=== PATIENT | male | born 1990 | race African-American/Black ===

== ENCOUNTER 2021-10-02 16:00 | Emergency (ER) | payer OTHER ==
[2021-10-02 16:13] VITALS: BP 128/77; PULSE 89; TEMP 97.8; BMI 26.6
[2021-10-02] MEDS ORDERED: ACETAMINOPHEN 325 MG TABLET (FP) PO ONE (17:04)
[2021-10-02] MEDS ORDERED: DIPHTH,PERTUSS(ACELL),TET 0.5 ML DISP.SYRIN IM ONE ×2 (17:04→17:34)
[2021-10-02] MEDS ORDERED: ACETAMINOPHEN 325 MG TABLET (FP) ONE (17:34)
== END 2021-10-02 17:59 | disposition home or self-care (01) ==
LOC: FER 16:00
PROC: 0HQGXZZ Repair Left Hand Skin, External Approach (ICD-10-PCS; principal; 2021-10-02)
PROC: 3E0234Z Introduction of Serum, Toxoid and Vaccine into Muscle, Percutaneous Approach (ICD-10-PCS; 2021-10-02)
DX: S61.012A Laceration without foreign body of left thumb without damage to nail, initial encounter (principal); W26.8XXA Contact with other sharp object(s), not elsewhere classified, initial encounter
CPT/HCPCS: 12001-25; 90471; 90715; 99283-25

== ENCOUNTER 2022-07-01 13:05 | Emergency (ER) | payer OTHER ==
[2022-07-01 13:36] VITALS: RESP 16; BMI 25.8
[2022-07-01] MEDS ORDERED: SODIUM CHLORIDE 0.9% 500 ML INFUS.BAG IV ONE ×2 (14:20→18:54)
[2022-07-01] MEDS ORDERED: ONDANSETRON 4 MG/2 ML VIAL IVPB ONE (14:20)
[2022-07-01] MEDS ORDERED: FAMOTIDINE 20 MG/50 ML IVPB 20 MG in PREMIX 50 IVPB ONE (14:20)
[2022-07-01] MEDS ORDERED: ONDANSETRON 4 MG/2 ML VIAL ONE ×2 (14:40→19:03)
[2022-07-01] MEDS ORDERED: FAMOTIDINE 20 MG/50 ML IVPB 20 MG/50 ML MG IVPB ONE (14:40)
[2022-07-01 15:26] LABS: EPITHELIAL CELLS RARE /hpf
[2022-07-01 16:10] LABS: HEMATOCRIT 49.6 % (35.4-49); MCH 32.7 pg (25.7-33.7); MCHC 34.2 g/dl (32.0-35.9); MEAN CELL VOLUME 95.5 fl (80-96); MEAN PLT VOLUME 7.8 fl (7.5-11.1); PLATELET COUNT 245.5 10^3/uL (134-434); RBC 5.19 10^6/uL (4.00-5.60); WHITE BLOOD COUNT 10.3 10^3/uL (4.0-10.8)
[2022-07-01 16:14] LABS: PLATELET ESTIMATE ADEQUATE
[2022-07-01 16:26] LABS: ALBUMIN 4.6 g/dl (3.4-5.0); BILIRUBIN,TOTAL 1.5 mg/dl (0.2-1); CALCIUM 9.1 mg/dl (8.5-10); CREATININE 1.2 mg/dl (0.55-1.3); TOT PROT 9.5 g/dl (6.4-8.2)
[2022-07-01] MEDS ORDERED: ONDANSETRON 4 MG/2 ML VIAL IVPUSH ONE (18:54)
[2022-07-01 19:15] VITALS: BP 106/66; PULSE 50; TEMP 98.7
[2022-07-01] MEDS ORDERED: HALOPERIDOL LACTATE 5 MG/ML IM ONE ×2 (20:07→20:51)
== END 2022-07-01 23:15 | disposition home or self-care (01) ==
LOC: FER 13:05
PROC: 3E033GC Introduction of Other Therapeutic Substance into Peripheral Vein, Percutaneous Approach (ICD-10-PCS; principal; 2022-07-01)
PROC: 3E033GC Introduction of Other Therapeutic Substance into Peripheral Vein, Percutaneous Approach (ICD-10-PCS; 2022-07-01)
PROC: 3E033GC Introduction of Other Therapeutic Substance into Peripheral Vein, Percutaneous Approach (ICD-10-PCS; 2022-07-01)
PROC: 3E023GC Introduction of Other Therapeutic Substance into Muscle, Percutaneous Approach (ICD-10-PCS; 2022-07-01)
DX: R11.2 Nausea with vomiting, unspecified (principal)
CPT/HCPCS: 0241U-QW; 36415; 74177-TC; 80053; 81003; 81015; 83690; 85027; 99285-25; Q9967

== ENCOUNTER 2023-09-10 21:23 | Emergency (ER) | payer OTHER ==
[2023-09-10 21:31] VITALS: BP 106/58; PULSE 54; RESP 16; TEMP 99.4; BMI 27.3
[2023-09-10] MEDS ORDERED: ONDANSETRON 4 MG/2 ML VIAL IVPUSH ONE (21:48)
[2023-09-10] MEDS ORDERED: SODIUM CHLORIDE 1,000 ML IV STA (21:48)
[2023-09-10] MEDS ORDERED: ONDANSETRON 4 MG/2 ML VIAL ONE (21:54)
[2023-09-10] MEDS ORDERED: HALOPERIDOL LACTATE 5 MG/ML IVPUSH ONE ×2 (22:40→23:58)
[2023-09-10] MEDS ORDERED: HALOPERIDOL LACTATE 5 MG/ML ONE (22:43)
[2023-09-10] MEDS ORDERED: ACETAMINOPHEN 1000 MG/100 ML BAG IVPB ONE (22:52)
[2023-09-10] MEDS ORDERED: ACETAMINOPHEN INJECTION 100 ML IVPB ONE (22:56)
[2023-09-11] MEDS ORDERED: HALOPERIDOL LACTATE 5 MG/ML IVPUSH ONE (00:01)
[2023-09-11] MEDS ORDERED: SODIUM CHLORIDE 1,000 ML IV STA ×2 (00:11→02:28)
[2023-09-11 01:46] LABS: BASO % 0.3 % (0-2.0); HEMATOCRIT 43.5 % (35.4-49); HEMOGLOBIN 14.6 GM/dL (11.7-16.9); LYMPH % 20.5 % (8-40); MCH 31.2 pg (25.7-33.7); MCHC 33.6 g/dl (32.0-35.9); MEAN CELL VOLUME 92.9 fl (80-96); MEAN PLT VOLUME 7.8 fl (7.5-11.1); MONO % 5.6 % (3.8-10.2); NEUT % 73.6 % (42.8-82.8); PLATELET COUNT 301 10^3/uL (134-434); RBC 4.68 M/mm3 (4.00-5.60); WHITE BLOOD COUNT 5.4 K/mm3 (4.0-10.0)
[2023-09-11 02:16] LABS: POTASSIUM 3.8 mmol/L (3.5-5.1)
[2023-09-11 02:18] LABS: ALBUMIN 3.9 g/dl (3.4-5.0); BLOOD UREA NITROGEN 11.9 mg/dL (7-18); CALCIUM 9.4 mg/dL (8.5-10.1)
[2023-09-11 02:21] LABS: CREATININE 1.1 mg/dL (0.55-1.3)
[2023-09-11 02:23] LABS: BILIRUBIN,TOTAL 0.7 mg/dL (0.2-1); TOT PROT 8.6 g/dl (6.4-8.2)
[2023-09-11] MEDS ORDERED: METOCLOPRAMIDE HCL INJECTION 10 MG/2 ML VIAL IVPB ONE (03:02)
[2023-09-11] MEDS ORDERED: METOCLOPRAMIDE HCL INJECTION 10 MG/2 ML VIAL ONE (03:03)
== END 2023-09-11 03:45 | disposition home or self-care (01) ==
LOC: FER 21:23
PROC: 3E033NZ Introduction of Analgesics, Hypnotics, Sedatives into Peripheral Vein, Percutaneous Approach (ICD-10-PCS; principal; 2023-09-10)
PROC: 3E033GC Introduction of Other Therapeutic Substance into Peripheral Vein, Percutaneous Approach (ICD-10-PCS; 2023-09-10)
PROC: 3E033GC Introduction of Other Therapeutic Substance into Peripheral Vein, Percutaneous Approach (ICD-10-PCS; 2023-09-10)
PROC: 3E033GC Introduction of Other Therapeutic Substance into Peripheral Vein, Percutaneous Approach (ICD-10-PCS; 2023-09-10)
PROC: 3E0337Z Introduction of Electrolytic and Water Balance Substance into Peripheral Vein, Percutaneous Approach (ICD-10-PCS; 2023-09-10)
PROC: 3E033GC Introduction of Other Therapeutic Substance into Peripheral Vein, Percutaneous Approach (ICD-10-PCS; 2023-09-11)
PROC: 3E0337Z Introduction of Electrolytic and Water Balance Substance into Peripheral Vein, Percutaneous Approach (ICD-10-PCS; 2023-09-11)
PROC: 3E0337Z Introduction of Electrolytic and Water Balance Substance into Peripheral Vein, Percutaneous Approach (ICD-10-PCS; 2023-09-11)
DX: R11.2 Nausea with vomiting, unspecified (principal); R19.7 Diarrhea, unspecified; K52.9 Noninfective gastroenteritis and colitis, unspecified
CPT/HCPCS: 36415; 71045-TC-FY; 80053; 85025; 99284-25

== ENCOUNTER 2023-10-23 09:29 | Emergency (ER) | payer OTHER ==
[2023-10-23 09:36] VITALS: BP 128/98; PULSE 61; RESP 18; TEMP 98.7; BMI 27.4
[2023-10-23] MEDS ORDERED: ACETAMINOPHEN INJECTION 100 ML IVPB ONE (10:07)
[2023-10-23] MEDS ORDERED: ONDANSETRON 4 MG/2 ML VIAL ONE (10:07)
[2023-10-23] MEDS: LACTATED RINGERS SOLUTION 1000 ML INFUS.BAG IV ONE (10:15)
[2023-10-23] MEDS: ONDANSETRON 4 MG/2 ML VIAL IVPUSH ONE (10:15)
[2023-10-23] MEDS: ACETAMINOPHEN 1000 MG/100 ML BAG IVPB ONE (10:20)
[2023-10-23 10:25] LABS: HEMATOCRIT 45.6 % (35.4-49); HEMOGLOBIN 15.7 G/dL (11.7-16.9); MCHC 34.4 g/dl (32.0-35.9); MEAN CELL VOLUME 92.9 fl (80-96); MEAN PLT VOLUME 7.6 fl (7.5-11.1); PLATELET COUNT 316.3 10^3/uL (134-434); RBC 4.91 10^6/uL (4.00-5.60); RDW 14.8 % (11.9-15.9); WHITE BLOOD COUNT 6.2 10^3/uL (4.0-10.8)
[2023-10-23 10:28] LABS: EPITHELIAL CELLS 0-5 /hpf; URINE MUCUS MANY
[2023-10-23 10:36] LABS: ALBUMIN 4.8 g/dl (3.4-5.0); BILIRUBIN,TOTAL 0.9 mg/dl (0.2-1); CALCIUM 10.3 mg/dl (8.5-10.1); CREATININE 1.1 mg/dl (0.6-1.3); PLATELET ESTIMATE ADEQUATE; POTASSIUM 4.1 mmol/L (3.5-5.1); TOT PROT 8.9 g/dl (6.4-8.2)
[2023-10-23] MEDS ORDERED: METOCLOPRAMIDE HCL INJECTION 10 MG/2 ML VIAL ONE (12:01)
[2023-10-23] MEDS: SODIUM CHLORIDE 0.9% 1000 ML INFUS.BAG IV ONE (12:05)
[2023-10-23] MEDS: METOCLOPRAMIDE HCL INJECTION 10 MG/2 ML VIAL IVPB ONE (12:10)
== END 2023-10-23 15:05 | disposition home or self-care (01) ==
LOC: FER 09:29
PROC: 3E033NZ Introduction of Analgesics, Hypnotics, Sedatives into Peripheral Vein, Percutaneous Approach (ICD-10-PCS; principal; 2023-10-23)
PROC: 3E033GC Introduction of Other Therapeutic Substance into Peripheral Vein, Percutaneous Approach (ICD-10-PCS; 2023-10-23)
PROC: 3E033GC Introduction of Other Therapeutic Substance into Peripheral Vein, Percutaneous Approach (ICD-10-PCS; 2023-10-23)
PROC: 3E033GC Introduction of Other Therapeutic Substance into Peripheral Vein, Percutaneous Approach (ICD-10-PCS; 2023-10-23)
DX: R11.2 Nausea with vomiting, unspecified (principal); R10.32 Left lower quadrant pain; R10.12 Left upper quadrant pain; Z20.822 Contact with and (suspected) exposure to COVID-19
CPT/HCPCS: 0241U-QW; 36415; 74177-TC; 80053; 81003; 81015; 83690; 85025; 87086; 99285-25; J0131; Q9967

== ENCOUNTER 2024-03-03 15:29 | Emergency (ER) | payer OTHER ==
[2024-03-03 15:47] VITALS: BP 100/81; PULSE 99; RESP 20; TEMP 98.4; BMI 27.4
[2024-03-03] MEDS ORDERED: DEXAMETHASONE SOD PHOSPHATE 10 MG/1 ML VIAL ONE (16:04)
[2024-03-03] MEDS: DEXAMETHASONE SOD PHOSPHATE 10 MG/1 ML VIAL IVPUSH ONE (16:16)
[2024-03-03 18:03] LABS: THROAT:GRP A STREP NOT DETECTED (NOTDETECTED)
== END 2024-03-03 16:38 | disposition home or self-care (01) ==
LOC: FER 15:29
PROC: 3E033GC Introduction of Other Therapeutic Substance into Peripheral Vein, Percutaneous Approach (ICD-10-PCS; principal; 2024-03-03)
DX: R07.0 Pain in throat (principal); R05.9 Cough, unspecified; Z20.822 Contact with and (suspected) exposure to COVID-19
CPT/HCPCS: 0241U-QW; 87651; 99284-25; J1100

== ENCOUNTER 2024-07-01 11:25 | Emergency (ER) | payer OTHER ==
[2024-07-01 11:51] VITALS: PULSE 89; RESP 18; TEMP 98.4; BMI 28.0
[2024-07-01] MEDS ORDERED: FAMOTIDINE 20 MG/50 ML IVPB 20 MG/50 ML MG IVPB ONE (12:08)
[2024-07-01] MEDS ORDERED: METOCLOPRAMIDE HCL INJECTION 10 MG/2 ML VIAL ONE (12:08)
[2024-07-01] MEDS ORDERED: ACETAMINOPHEN INJECTION 100 ML ONE (12:08)
[2024-07-01] MEDS: SODIUM CHLORIDE 0.9% 500 ML INFUS.BAG IV ONE ×2 (12:15→13:42)
[2024-07-01] MEDS: ACETAMINOPHEN 1000 MG/100 ML BAG IVPB ONE (12:20)
[2024-07-01 12:21] LABS: HEMATOCRIT 47.9 % (35.4-49); HEMOGLOBIN 16.2 G/dL (11.7-16.9); MCH 31.4 pg (25.7-33.7); MCHC 33.8 g/dl (32.0-35.9); MEAN PLT VOLUME 8.7 fl (7.5-11.1); PLATELET COUNT 339.9 10^3/uL (134-434); RBC 5.15 10^6/uL (4.00-5.60); RDW 14.1 % (11.9-15.9); WHITE BLOOD COUNT 7.5 10^3/uL (4.0-10.8)
[2024-07-01] MEDS: METOCLOPRAMIDE HCL INJECTION 10 MG/2 ML VIAL IVPB ONE (12:38)
[2024-07-01 12:44] LABS: EPITHELIAL CELLS 0-5 /hpf
[2024-07-01 12:45] LABS: URINE MUCUS 2+
[2024-07-01 12:53] LABS: ALBUMIN 4.9 g/dl (3.4-5.0); BILIRUBIN,TOTAL 0.7 mg/dl (0.2-1); CALCIUM 10.7 mg/dl (8.5-10.1); CREATININE 1.5 mg/dl (0.6-1.3); POTASSIUM 4.5 mmol/L (3.5-5.1); TOT PROT 8.8 g/dl (6.4-8.2)
[2024-07-01] MEDS: FAMOTIDINE 20 MG/50 ML IVPB 20 MG/50 ML MG IVPB ONE (12:53)
[2024-07-01 12:58] LABS: PLATELET ESTIMATE ADEQUATE
[2024-07-01] MEDS ORDERED: MAG HYDROX/AL HYDROX/SIMETH 30 ML UNIT-DOSE CUP ONE (13:26)
[2024-07-01] MEDS: MAG HYDROX/AL HYDROX/SIMETH 30 ML UNIT-DOSE CUP PO ONE (13:30)
[2024-07-01] MEDS ORDERED: HALOPERIDOL LACTATE 5 MG/ML ONE (13:43)
[2024-07-01] MEDS: HALOPERIDOL LACTATE 5 MG/ML IVPUSH ONE (13:55)
[2024-07-01 15:45] LABS: METHADONE, UR NEGATIVE (NEGATIVE)
[2024-07-01 15:46] LABS: OPIATES, URI NEGATIVE (NEGATIVE); PHENCYCLIDINE,URINE NEGATIVE (NEGATIVE); URINE BARBITURATES NEGATIVE (NEGATIVE)
[2024-07-01 15:48] LABS: COCAINE, UR POSITIVE (NEGATIVE); URINE AMPHETAMINES NEGATIVE (NEGATIVE); URINE BENZODIAZEPINES NEGATIVE (NEGATIVE)
[2024-07-01 17:29] VITALS: BP 128/75
== END 2024-07-01 17:20 | disposition home or self-care (01) ==
LOC: FER 11:25
PROC: 3E033GC Introduction of Other Therapeutic Substance into Peripheral Vein, Percutaneous Approach (ICD-10-PCS; principal; 2024-07-01)
PROC: 3E033NZ Introduction of Analgesics, Hypnotics, Sedatives into Peripheral Vein, Percutaneous Approach (ICD-10-PCS; 2024-07-01)
PROC: 3E033GC Introduction of Other Therapeutic Substance into Peripheral Vein, Percutaneous Approach (ICD-10-PCS; 2024-07-01)
PROC: 3E033GC Introduction of Other Therapeutic Substance into Peripheral Vein, Percutaneous Approach (ICD-10-PCS; 2024-07-01)
DX: R11.2 Nausea with vomiting, unspecified (principal); R10.12 Left upper quadrant pain; R10.32 Left lower quadrant pain
CPT/HCPCS: 36415; 80053; 80307; 81003; 81015; 83690; 85027; 93005; 99284-25; J0131

== ENCOUNTER 2025-01-04 06:15 | Day surgery (SDC) | payer OTHER ==
[2024-12-30 13:20] VITALS: BMI 29.3
[2025-01-04] MEDS ORDERED: LIDOCAINE HCL 2% 100 MG/5 ML DISP.SYRIN ONE (07:25)
[2025-01-04] MEDS ORDERED: MIDAZOLAM HCL 2 MG/2 ML SINGLE DOSE VIAL ONE (07:25)
[2025-01-04] MEDS ORDERED: PROPOFOL 40 ML ONE (07:25)
[2025-01-04] MEDS ORDERED: ONDANSETRON 4 MG/2 ML VIAL ONE (07:25)
[2025-01-04] MEDS ORDERED: SEVOFLURANE 250 ML BTL ONE (07:25)
[2025-01-04] MEDS ORDERED: DEXAMETHASONE SOD PHOSPHATE 4 MG/1 ML VIAL ONE (07:25)
[2025-01-04] MEDS ORDERED: ONDANSETRON 4 MG/2 ML VIAL IVPUSH PRN (07:46)
[2025-01-04] MEDS ORDERED: LACTATED RINGERS SOLUTION 1,000 ML IV SCH (08:00)
[2025-01-04] MEDS ORDERED: DEXTROSE 5%-0.45% SALINE 1,000 ML IV SCH (08:00)
[2025-01-04] MEDS ORDERED: ceFAZolin SODIUM 1 GM VIAL ONE (08:05)
[2025-01-04] MEDS: ceFAZolin SODIUM 1 GM VIAL IVPB ONE (08:06)
[2025-01-04] MEDS ORDERED: KETOROLAC TROMETHAMINE 30 MG/1 ML VIAL ONE (08:22)
[2025-01-04] MEDS ORDERED: PROMETHAZINE HCL 25 MG/1 ML VIAL ONE (10:54)
[2025-01-04] MEDS: PROMETHAZINE HCL 25 MG/1 ML VIAL IVPB PRN (11:06)
[2025-01-04] MEDS ORDERED: oxyCODONE HCL 5 MG TABLET ONE (11:45)
[2025-01-04] MEDS: oxyCODONE HCL 5 MG TABLET PO PRN (11:51)
[2025-01-04] MEDS ORDERED: ACETAMINOPHEN INJECTION 100 ML ONE (12:30)
[2025-01-04] MEDS: ACETAMINOPHEN 1000 MG/100 ML BAG IVPB PRN (12:35)
[2025-01-04 13:10] VITALS: BP 139/93; PULSE 62; RESP 18; TEMP 98.1
[2025-01-14 16:07] LABS: CA OXALATE MONOHYDR. 70 % (.); SIZE 2x2 mm (.)
== END 2025-01-04 13:30 | disposition home or self-care (01) ==
LOC: JASU-SURG 06:15
PROVIDERS: ATTEND Urology
PROC: 0TC68ZZ Extirpation of Matter from Right Ureter, Via Natural or Artificial Opening Endoscopic (ICD-10-PCS; principal; 2025-01-04 07:30)
PROC: 0T768DZ Dilation of Right Ureter with Intraluminal Device, Via Natural or Artificial Opening Endoscopic (ICD-10-PCS; 2025-01-04 07:30)
DX: N20.1 Calculus of ureter (principal)
CPT/HCPCS: 36415; 76000-TC-FY; 82360; 88300-TC; 94760; C1758; J0131